=== PATIENT | male | born 1940 | race Caucasian/White ===

== ENCOUNTER 2023-12-11 14:13 | Inpatient (IN) | payer MEDICARE ==
[2023-12-11 15:16] LABS: #Basophils Less than 0.03 10x3/uL (0.0-0.2); #Eosinophils Less than 0.03 10x3/uL (0.0-0.7); %Basophils 0.1 % (0.0-1.0); %Lymphocytes 6.4 % (21.0-51.0); %Monocytes 5.1 % (0.0-10.0); %Neutrophils 87.5 % (42.0-75.0); Hemoglobin 15.3 g/dL (14.0-18.0); Mean Corpuscular HGB CONC 34.8 g/dL (32.0-36.0); Mean Corpuscular Hemoglobin 30.4 pg (27.0-31.0); Mean Corpuscular Volume 87.3 fL (78.0-98.0); Mean Platelet Volume 11.1 fL (7.4-10.4); Platelet Count 212 10x3/uL (130-400); RBC Distribution Width 14.8 % (11.5-14.5); Red Blood Cell (RBC) Count 5.04 mill/uL (4.70-6.10)
[2023-12-11 15:35] LABS: ALT (SGPT) 64 U/L (8-55); AST (SGOT) 47 U/L (5-34); Albumin 2.9 g/dL (3.4-4.8); Alkaline Phosphatase 141 U/L (40-110); Anion Gap 15 mmol/L (10-20); BUN (Urea Nitrogen) 32 mg/dL (8.4-25.7); Bilirubin, Total 1.1 mg/dL (0.2-1.2); Calc. Creatinine Clearance 0 mL/min (70-130); Calcium 8.7 mg/dL (7.8-10.44); Carbon Dioxide 20 mmol/L (23-31); Chloride 98 mmol/L (98-107); Estimated GFR 52; Globulin 3.6 g/dL (2.4-3.5); Glucose 156 mg/dL (83-110); Lipase 43 U/L (8-78); Potassium 5.6 mmol/L (3.5-5.1); Protein, Total 6.5 g/dL (5.8-8.1); Sodium 127 mmol/L (136-145)
[2023-12-11] MEDS ORDERED: Ondansetron PF 4 MG/2 ML Vial ONE (15:59)
[2023-12-11] MEDS ORDERED: Sodium Chloride 0.9% 100 ML ONE ×2 (16:00→16:07)
[2023-12-11] MEDS ORDERED: Piperacillin/Tazobactam 4.5 GM VIAL ONE (16:00)
[2023-12-11] MEDS ORDERED: Morphine 4 MG/ML VIAL ONE (17:01)
[2023-12-11] MEDS ORDERED: Dextrose 50% Abboject 50 ML SYRINGE SLOW IVP PRN (18:13)
[2023-12-11] MEDS ORDERED: Acetaminophen 325 MG TAB PO PRN (18:13)
[2023-12-11] MEDS ORDERED: Dextrose 5% in Water 1,000 ML IV PRN (18:13)
[2023-12-11] MEDS ORDERED: Glucagon 1 MG/ML KIT IM PRN (18:13)
[2023-12-11] MEDS ORDERED: Ondansetron PF 4 MG/2 ML Vial IVP PRN (18:13)
[2023-12-11] MEDS ORDERED: Senokot S 8.6-50 MG TAB PO PRN (18:13)
[2023-12-11 18:34] LABS: Lactic Acid 1.24 mmol/L (0.5-2.2)
[2023-12-11 19:23] LABS: Bacteria/HPF None Seen HPF (None Seen); Bilirubin Negative (Negative); Blood, Urine Negative (Negative); CAUTI Indications for Culture Acute Hematuria; Clarity Clear (Clear); Glucose, Urine (Dipstick) Normal (Negative); Ketone, Urine Trace mg/dL (Negative); Leukocyte Negative Leu/uL (Negative); Nitrite Negative (Negative); Protein, Urine (Dipstick) Negative (Neg-Trace); RBC/HPF 0-3 HPF (0-3); Squamous Epithelial None Seen HPF (0-3); Urobilinogen Normal mg/dL (Less than 2); WBC/HPF 0-3 HPF (0-3); pH, Urine 5.5 (5.0-9.0)
[2023-12-11 19:38] LABS: Specific Gravity, Urine Greater than 1.060 (1.002-1.036)
[2023-12-11 19:40] LABS: Urine Culture Reflex No No
[2023-12-11] MEDS: traMADol HCl 50 MG TAB PO PRN (20:20)
[2023-12-11] MEDS: Sodium Chloride 0.9% 1,000 ML IV SCH (20:31)
[2023-12-11] MEDS: Vancomycin (BATCH) 2 GM in Premix 1 BAG IVPB SCH (20:32)
[2023-12-11] MEDS ORDERED: Vancomycin 1 GM in Sodium Chloride 0.9% 250 ML 250 ML IVPB SCH (21:00)
[2023-12-11 21:15] VITALS: BMI 29.6
[2023-12-11] MEDS: traZODone HCl 50 MG TAB PO SCH (21:40)
[2023-12-11] MEDS ORDERED: Piperacillin/Tazobactam 4.5 GM in Sodium Chloride 0.9% 100 ML IVPB SCH (22:00)
[2023-12-11] MEDS: Sertraline 100 MG TAB PO SCH (22:27)
[2023-12-11] MEDS: Memantine 10 MG TAB PO SCH (22:27)
[2023-12-11] MEDS: Famotidine/PF 20 mg/2ml Vial SLOW IVP SCH (22:34)
[2023-12-11] MEDS: Piperacillin/Tazobactam 3.375 GM in Sodium Chloride 0.9% 100 ML IVPB SCH (23:27)
[2023-12-12 04:59] LABS: #Basophils 0.03 10x3/uL (0.0-0.2); %Basophils 0.2 % (0.0-1.0); %Eosinophils 1.1 % (0.0-10.0); %Lymphocytes 17.8 % (21.0-51.0); %Monocytes 6.8 % (0.0-10.0); %Neutrophils 73.1 % (42.0-75.0); Hematocrit 43.5 % (42.0-52.0); Hemoglobin 14.5 g/dL (14.0-18.0); Mean Corpuscular HGB CONC 33.3 g/dL (32.0-36.0); Mean Corpuscular Hemoglobin 29.6 pg (27.0-31.0); Mean Corpuscular Volume 88.8 fL (78.0-98.0); Mean Platelet Volume 11.7 fL (7.4-10.4); Platelet Count 175 10x3/uL (130-400); RBC Distribution Width 15.2 % (11.5-14.5)
[2023-12-12 05:05] LABS: Anion Gap 14 mmol/L (10-20); BUN (Urea Nitrogen) 28 mg/dL (8.4-25.7); Calc. Creatinine Clearance 56 mL/min (70-130); Carbon Dioxide 19 mmol/L (23-31); Chloride 100 mmol/L (98-107); Potassium 4.3 mmol/L (3.5-5.1); Sodium 129 mmol/L (136-145); Vancomycin, Random 11.8 ug/mL (See Comment)
[2023-12-12 05:06] LABS: Calcium 7.9 mg/dL (7.8-10.44); Estimated GFR 53; Glucose 81 mg/dL (83-110)
[2023-12-12] MEDS: Piperacillin/Tazobactam 3.375 GM in Sodium Chloride 0.9% 100 ML IVPB SCH (05:54)
[2023-12-12] MEDS: Enoxaparin 40 MG (0.4 mL) SYRINGE SC SCH (08:31)
[2023-12-12] MEDS: predniSONE 20 MG TAB PO SCH (08:31)
[2023-12-12] MEDS: Pantoprazole DR 40 MG TAB PO SCH (13:21)
[2023-12-12] MEDS: Acetaminophen 325 MG TAB PO SCH (13:21)
[2023-12-12] MEDS: Vancomycin (BATCH) 1.75 GM in Premix 1 BAG IVPB SCH (15:38)
[2023-12-12] MEDS ORDERED: Vancomycin (BATCH) 1.5 GM in Premix 1 BAG IVPB SCH (17:00)
[2023-12-12] MEDS: Memantine 10 MG TAB PO SCH (21:06)
[2023-12-12] MEDS: Sertraline 100 MG TAB PO SCH (21:06)
[2023-12-12] MEDS: traZODone HCl 50 MG TAB PO PRN (21:06)
[2023-12-13] MEDS: Pantoprazole DR 40 MG TAB PO SCH (08:49)
[2023-12-13] MEDS: Sodium Chloride 0.9% 1,000 ML IV SCH (12:54)
[2023-12-13] MEDS: Clindamycin 150 MG CAP PO SCH (13:35)
[2023-12-13] MEDS: Gentamicin Ophth Soln 0.3% 5 ml Bottle EA EYE SCH (15:57)
[2023-12-13] MEDS ORDERED: predniSONE 20 MG TAB PO SCH (21:00)
[2023-12-13 22:05] LABS: Anion Gap 12 mmol/L (10-20); BUN (Urea Nitrogen) 19 mg/dL (8.4-25.7); Calc. Creatinine Clearance 59 mL/min (70-130); Calcium 7.7 mg/dL (7.8-10.44); Carbon Dioxide 19 mmol/L (23-31); Chloride 108 mmol/L (98-107); Estimated GFR 55; Glucose 129 mg/dL (83-110); Magnesium 1.9 mg/dL (1.6-2.6); Potassium 4.6 mmol/L (3.5-5.1); Sodium 134 mmol/L (136-145)
[2023-12-13] MEDS: Magnesium 2 GM/50 ML(in water) 2 GM in Premix 1 BAG IVPB SCH (23:28)
[2023-12-13] MEDS: Piperacillin/Tazobactam 3.375 GM in Sodium Chloride 0.9% 100 ML IVPB SCH (23:28)
[2023-12-14 06:41] LABS: #Basophils 0.03 10x3/uL (0.0-0.2); %Basophils 0.3 % (0.0-1.0); %Eosinophils 1.1 % (0.0-10.0); %Lymphocytes 16.7 % (21.0-51.0); %Monocytes 5.8 % (0.0-10.0); %Neutrophils 75.2 % (42.0-75.0); Hematocrit 42.1 % (42.0-52.0); Hemoglobin 13.5 g/dL (14.0-18.0); Mean Corpuscular HGB CONC 32.1 g/dL (32.0-36.0); Mean Corpuscular Hemoglobin 30.1 pg (27.0-31.0); Mean Platelet Volume 11.1 fL (7.4-10.4); Platelet Count 183 10x3/uL (130-400); RBC Distribution Width 15.6 % (11.5-14.5); Red Blood Cell (RBC) Count 4.48 mill/uL (4.70-6.10)
[2023-12-14 07:05] LABS: Anion Gap 15 mmol/L (10-20); BUN (Urea Nitrogen) 18 mg/dL (8.4-25.7); Calc. Creatinine Clearance 59 mL/min (70-130); Calcium 8.1 mg/dL (7.8-10.44); Carbon Dioxide 19 mmol/L (23-31); Chloride 106 mmol/L (98-107); Estimated GFR 55; Glucose 93 mg/dL (83-110); Potassium 4.2 mmol/L (3.5-5.1); Sodium 136 mmol/L (136-145)
[2023-12-14] MEDS: prednisoLONE 1% Ophth Susp 5 ml Bottle EA EYE SCH (10:47)
[2023-12-14] MEDS: Insulin Regular, Human 100 UNIT/ML 10 ML VIAL SC PRN (17:40)
[2023-12-14] MEDS: Piperacillin/Tazobactam 3.375 GM in Sodium Chloride 0.9% 100 ML IVPB SCH (19:11)
[2023-12-15] MEDS: Lansoprazole 30 MG/10 ML UDCUP PO SCH (09:57)
[2023-12-15] MEDS: Sodium Chloride 0.9% 1,000 ML IV SCH (12:17)
[2023-12-16] MEDS: Lansoprazole 30 MG/10 ML UDCUP PO SCH (08:34)
[2023-12-16] MEDS: Melatonin 3 MG TAB PO PRN (20:15)
[2023-12-17 11:48] VITALS: BP 110/72; TEMP 97.4
== END 2023-12-17 15:18 | DRG 392 ==
LOC: ERS 14:13 → ERHOLD 17:16 → 2NO 19:24
PROVIDERS: ADMIT Family Medicine; ATTEND Family Medicine
DX: K29.80 Duodenitis without bleeding (principal); E87.1 Hypo-osmolality and hyponatremia; E70.1 Other hyperphenylalaninemias; H05.011 Cellulitis of right orbit; E87.20 Acidosis, unspecified; N17.9 Acute kidney failure, unspecified; R62.7 Adult failure to thrive; Z68.29 Body mass index [BMI] 29.0-29.9, adult; F03.90 Unspecified dementia, unspecified severity, without behavioral disturbance, psychotic disturbance, mood disturbance, and anxiety; F41.9 Anxiety disorder, unspecified; E11.22 Type 2 diabetes mellitus with diabetic chronic kidney disease; N18.30 Chronic kidney disease, stage 3 unspecified; M19.90 Unspecified osteoarthritis, unspecified site; Z79.899 Other long term (current) drug therapy; E87.5 Hyperkalemia
CPT/HCPCS: 36415; 36416; 71045; 74177; 80048; 80053; 80202; 81001; 82565; 83605; 83690; 83735; 83880; 84484; 85025; 87040; 87081; 87086; 93005; 93010; 96374; 96375; J1650; J1815; J2272; J2405; J2543; J3370; J3475; J3490; J7030; J7512